=== PATIENT | female | born 1985 | race Asian ===

== ENCOUNTER → 2017-11-21 | Outpatient (CLI) | payer OTHER | END | disposition home or self-care (01) | LOC: CFH 13:45 | PROVIDERS: ATTEND Physical Medicine & Rehabilitation | DX: M48.07 Spinal stenosis, lumbosacral region (principal) | CPT/HCPCS: 72110 ==

== ENCOUNTER 2020-10-12 06:59 | Outpatient (CLI) | payer OTHER | END 2020-10-12 23:59 | disposition home or self-care (01) | LOC: ROC 06:59 | PROVIDERS: ATTEND Radiology Radiation Oncology | DX: Z02.9 Encounter for administrative examinations, unspecified (principal) ==